=== PATIENT | male | born 1970 | race Caucasian/White ===

== ENCOUNTER 2017-11-24 11:29 | Emergency (ER) | payer OTHER ==
[~2017-11-24] VITALS: Ht 170.2 cm; Wt 50.3 kg
[2017-11-24 12:55] LABS: BASOPHILS # (AUTO) 0.03 x10^3/uL (0-0.1); BASOPHILS % (AUTO) 0 % (0-1); EOSINOPHILS # (AUTO) 0.04 x10^3/uL (0-0.4); EOSINOPHILS % (AUTO) 1 % (1-7); LYMPHOCYTES # (AUTO) 1.67 x10^3/uL (1-3.4); LYMPHOCYTES % (AUTO) 23 % (22-44); MD NO; MEAN CORPUSCULAR HEMOGLOBIN 32.4 pg (27.5-34.5); MEAN CORPUSCULAR HGB CONC 34.3 g/dL (33.2-36.2); MEAN CORPUSCULAR VOLUME 94.3 fL (81-97); MEAN PLATELET VOLUME 7.6 fL (7.4-10.4); MONOCYTES # (AUTO) 0.48 x10^3/uL (0.2-0.8); MONOCYTES % (AUTO) 7 % (2-9); NEUTROPHILS # (AUTO) 4.99 x10^3/uL (1.8-6.8); NEUTROPHILS % (AUTO) 69 % (42-75); PLATELET COUNT 225 x10^3/uL (130-400); RED BLOOD COUNT 4.92 x10^6/uL (4.38-5.82); RED CELL DISTRIBUTION WIDTH 13.4 % (9.4-14.8)
[2017-11-24 13:07] LABS: ALBUMIN 4.2 g/dL (3.4-5.0); ANION GAP 8 mmol/L (5-15); CALCIUM 8.9 mg/dL (8.5-10.1); CHLORIDE 105 mmol/L (98-107); CREATININE 0.96 mg/dL (0.7-1.3)
[2017-11-24 13:10] LABS: TROPONIN I < 0.015 ng/mL (0.000-0.045)
[2017-11-24] MEDS ORDERED: HYDR-3307 PO (13:17)
[2017-11-24] MEDS ORDERED: CARI350T PO (13:17)
[2017-11-24 13:50] VITALS: BP 109/79
== END 2017-11-24 13:52 | disposition home or self-care (01) ==
LOC: ED 13:44
DX: R07.2 Precordial pain (principal); Z90.49 Acquired absence of other specified parts of digestive tract
CPT/HCPCS: 36415; 71045; 80048; 82040; 84484; 85025; 93005; 99285